=== PATIENT | male | born 1990 | race Caucasian/White ===

== ENCOUNTER 2016-09-23 23:26 | Emergency (ER) | payer OTHER ==
[~2016-09-23] VITALS: Ht 177.8 cm; Wt 83.9 kg
[2016-09-23 23:34] VITALS: BP 159/99
[2016-09-23 23:51] LABS: Urine Bilirubin Negative (Negative); Urine Blood 3+ /uL (Negative); Urine Color Orange (Yellow); Urine Glucose Normal (Normal); Urine Ketone Negative (Negative); Urine Nitrite Negative (Negative); Urine RBC 218 /hpf (0 - 3); Urine Urobilinogen Normal (Negative)
[2016-09-24 00:05] LABS: Basophils # (auto) 0.1 uL; Basophils % (auto) 0.6 % (0.0-2.0); CONDITION Y; Eosinophils # (auto) 0.7 uL; Hematocrit 45.8 % (41.0-53.0); Hemoglobin 15.6 g/dL (13.5-17.5); Lymphocytes % (auto) 35.3 % (10.0-50.0); Mean Corpuscular Hemoglobin 29.2 pg (28.0-32.0); Mean Corpuscular Hgb Conc. 34.1 g/dL (32.0-36.0); Mean Corpuscular Volume 85.5 fL (80.0-100.0); Mean Platelet Volume 6.8 fL (7.4-10.4); Monocytes # (auto) 0.8 uL; Monocytes % (auto) 6.8 % (0.0-12.0); Neutrophils # (auto) 5.8 uL; Neutrophils % (auto) 51.3 % (37.0-80.0); Platelet Count (auto) 443 10^3/uL (140-450); Red Cell Distribution Width 14.2 % (11.6-16.0); White Blood Cell 11.4 10^3/uL (4.4-10.8)
[2016-09-24 00:22] LABS: Albumin 4.1 g/dL (3.4-5.0); BUN/Creatinine Ratio 15.8; Calcium 8.7 mg/dL (8.5-10.1); Potassium 4.1 mmol/L (3.5-5.1)
[2016-09-24 00:23] LABS: Bilirubin, Total 0.4 mg/dL (0.2-1.0)
== END 2016-09-24 01:58 | disposition left against medical advice (07) ==
LOC: ER 23:26
DX: R10.32 Left lower quadrant pain (principal); Z53.21 Procedure and treatment not carried out due to patient leaving prior to being seen by health care provider
CPT/HCPCS: 36415; 80053; 81001; 83690; 85025